=== PATIENT | male | born 1995 | race Two or more races ===

== ENCOUNTER 2024-08-04 21:54 | Emergency (ER) | payer MEDICAID, SELFPAY ==
[2024-08-04 21:58] VITALS: BP 169/100; PULSE 92; RESP 17; TEMP 37.6; O2SAT 98
[2024-08-04 22:04] VITALS: PULSE 92; O2SAT 99
--- NOTE | 2024-08-04 22:11 | PC.NURSE ---
[facility] OFFICER HERE TO SPEAK WITH PATIENT.
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
[2024-08-05] MEDS: HYDROmorphone INJ 2 MG/ML VIAL 0.5 MG IVP (01:25)
[2024-08-05] MEDS: ONDANSETRON INJ 2 MG/ML INJ 2 ML 4 MG IV (01:26)
[2024-08-05] MEDS: ACETAMINOPHEN IVPB 1,000 MG/100 ML VIAL 250 MG IV (01:29)
[2024-08-05 01:30] VITALS: BP 132/94; PULSE 79; RESP 19; TEMP 38.2; O2SAT 96
[2024-08-05 03:00] VITALS: BP 150/79; PULSE 76; RESP 18; TEMP 37; O2SAT 98
== END 2024-08-05 03:00 | disposition home or self-care (01) ==
PROVIDERS: Emergency Provider Emergency Medicine
DX: S82.402A Unspecified fracture of shaft of left fibula, initial encounter for closed fracture (principal); V49.40XA Driver injured in collision with unspecified motor vehicles in traffic accident, initial encounter; R07.9 Chest pain, unspecified; M54.9 Dorsalgia, unspecified
CPT/HCPCS: 73502; 73562; 73590; 73600; 96374; 96375; 99284; J0131; J1171; J2405

== ENCOUNTER → 2024-09-24 | Outpatient (CLI) | payer MEDICAID, SELFPAY ==
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
== END | disposition home or self-care (01) ==
PROVIDERS: PCP Orthopaedic Surgery; Referring Provider Orthopaedic Surgery; Visit Provider Orthopaedic Surgery
DX: S82.202A Unspecified fracture of shaft of left tibia, initial encounter for closed fracture (principal); X58.XXXA Exposure to other specified factors, initial encounter
CPT/HCPCS: 73590